=== PATIENT | female | born 1985 | race Caucasian/White ===

== ENCOUNTER 2020-04-01 09:25 | Emergency (ER) | payer MEDICAID, MEDICARE, OTHER ==
[~2020-04-01] VITALS: Ht 160 cm; Wt 119.7 kg
[2020-04-01 09:26] VITALS: BP 151/96
[2020-04-01] MEDS ORDERED: HYDROcodone/APAP 5/325 TABLET PO ONE (10:30)
[2020-04-01] MEDS ORDERED: IBUPROFEN 200 MG TABLET PO ONE (10:30)
[2020-04-01] MEDS ORDERED: HYDROcodone/APAP 5/325 TABLET ONE (10:41)
[2020-04-01] MEDS ORDERED: IBUPROFEN 600 MG TABLET ONE (10:41)
== END 2020-04-01 11:05 | disposition home or self-care (01) ==
LOC: ED 11:00
DX: S43.101A Unspecified dislocation of right acromioclavicular joint, initial encounter (principal); J45.909 Unspecified asthma, uncomplicated; W18.30XA Fall on same level, unspecified, initial encounter; Y93.89 Activity, other specified; Y92.009 Unspecified place in unspecified non-institutional (private) residence as the place of occurrence of the external cause; Y99.8 Other external cause status
CPT/HCPCS: 99283